=== PATIENT | female | born 1940 | race Caucasian/White ===

== ENCOUNTER 2019-10-21 13:19 | Outpatient (CLI) | payer OTHER ==
--- NOTE | 2019-10-21 14:05 | CT ---
CT OF THE THORAX WITHOUT IV CONTRAST INDICATION: Abnormal chest radiograph; possible interstitial lung disease COMPARISON: No relevant prior studies are available. FINDINGS: LUNGS: There are scattered centrilobular and paraseptal emphysema seen predominantly in an upper lobe distribution. There is some mild paraseptal emphysema involving both lung bases. No suspicious pulmonary nodule is evident. No confluent airspace opacity is demonstrated. Pleural spaces: Clear Lymph nodes: No pathologically enlarged lymph nodes. Heart and great vessels: There are scattered vascular calcifications involving coronary arteries and thoracic aorta. Upper abdomen: Visualized aspects of the upper abdomen appear within normal limits. Osseous structures: No acute osseous abnormality. There is scattered degenerative and osteoarthritic change present. 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 Recommend correlation with patient's clinical history.
== END 2019-10-21 13:20 | disposition home or self-care (01) ==
LOC: CT 13:19 → EDBD 13:30
PROVIDERS: ATTEND Family Medicine
DX: R93.89 Abnormal findings on diagnostic imaging of other specified body structures (principal); J43.2 Centrilobular emphysema
CPT/HCPCS: 71250; 93922